=== PATIENT | female | born 1960 | race Caucasian/White ===

== ENCOUNTER 2021-02-19 12:40 | Emergency (ER) | payer OTHER ==
[~2021-02-19] VITALS: Ht 160 cm; Wt 113.4 kg
[2021-02-19] MEDS ORDERED: DEXAMETHASONE SOD PHOS 10 MG/1 ML VIAL IV ONE (13:00)
[2021-02-19] MEDS ORDERED: IPRATROPIUM BROMIDE 0.02% 2.5 ML NEB NEB STA (13:00)
[2021-02-19] MEDS ORDERED: ALBUTEROL SULF 0.083% NEB SOLN 3 ML NEB NEB STA (13:00)
[2021-02-19] MEDS ORDERED: DEXAMETHASONE SOD PHOS INJ 4 MG/ML SDV ONE (13:38)
[2021-02-19] MEDS ORDERED: IPRATROPIUM BROMIDE 0.02% 2.5 ML NEB ONE (13:38)
[2021-02-19] MEDS ORDERED: ALBUTEROL SULF 0.083% NEB SOLN 3 ML NEB ONE (13:39)
[2021-02-19] MEDS ORDERED: PREDNISONE20 MG PO (14:04)
[2021-02-19] MEDS ORDERED: AZITHROMYCIN250 MG PO (14:04)
[2021-02-19] MEDS ORDERED: Paxlovid PO (19:29)
== END 2021-02-19 14:11 | disposition home or self-care (01) ==
LOC: FSED 12:50
DX: U07.1 COVID-19 (principal); R06.02 Shortness of breath; J44.9 Chronic obstructive pulmonary disease, unspecified; R07.89 Other chest pain
CPT/HCPCS: 71046; 80053; 82553; 83880; 84484; 85025; 93005; 99283; J1100; U0002

== ENCOUNTER 2022-06-04 07:43 | Inpatient (IN) | payer BC, OTHER ==
[~2022-06-04] VITALS: Ht 160 cm; Wt 113.2 kg
[~2022-06-04 07:43] MED LIST: AZITHROMYCIN250 MG PO; PREDNISONE20 MG PO; Paxlovid PO
[2022-06-04] MEDS ORDERED: METHYLPREDNISOLONE SOD SUCC 125 MG/2ML VIAL ONE (08:22)
[2022-06-04] MEDS ORDERED: SODIUM CHLORIDE 0.9% 1000ML 1,000 ML IV STA (08:23)
[2022-06-04] MEDS ORDERED: ALBUTEROL/IPRATROPIUM 3 ML NEB ONE (08:23)
[2022-06-04] MEDS ORDERED: CEFTRIAXONE 1 GM VIAL ONE (08:23)
[2022-06-04] MEDS ORDERED: METHYLPREDNISOLONE SOD SUCC 125 MG/2ML VIAL IV ONE (08:30)
[2022-06-04] MEDS ORDERED: ALBUTEROL/IPRATROPIUM 3 ML NEB NEB ONE (08:30)
[2022-06-04] MEDS ORDERED: SODIUM CHLORIDE 0.9% 1000ML 1,000 ML IV SCH ×2 (09:15→12:00)
[2022-06-04 11:30] VITALS: BP 154/81
[2022-06-04 11:56] VITALS: BP 154/81
[2022-06-04] MEDS ORDERED: LISINOPRIL10 MG PO (12:07)
[2022-06-04] MEDS ORDERED: FAMOTIDINE20 MG PO (13:17)
[2022-06-04] MEDS ORDERED: ASPIRIN81 MG PO (13:17)
[2022-06-04] MEDS ORDERED: DYMISTA NASAL S23 GM INH (13:17)
[2022-06-04] MEDS ORDERED: PROVENTIL HFA6.7 GM INH (13:17)
[2022-06-04] MEDS ORDERED: BREO ELLIPTA 11 EACH INH (13:17)
[2022-06-04] MEDS ORDERED: AMLODIPINE BESYL5 MG PO (13:17)
[2022-06-04] MEDS ORDERED: MOVE FREE ULTR1 EAC1 (13:17)
[2022-06-04] MEDS ORDERED: CARBINOXAMINE MA4 MG PO (13:17)
[2022-06-04] MEDS ORDERED: TRICOR145 MG PO (13:17)
[2022-06-04] MEDS ORDERED: FUROSEMIDE10 MG/1 M1 IV (13:17)
[2022-06-04] MEDS ORDERED: ATORVASTATIN CA20 MG PO (13:17)
[2022-06-04 13:52] VITALS: BP 154/81
[2022-06-04] MEDS ORDERED: ALBUTEROL SULFATE HFA 8GM INHALATION AEROSOL INH PRN (16:32)
[2022-06-04 16:38] VITALS: BP 165/80
[2022-06-04] MEDS ORDERED: ACETAMINOPHEN 325 MG TAB PO PRN (16:45)
[2022-06-04 20:00] VITALS: BP 142/80
[2022-06-04] MEDS: FUROSEMIDE INJ 10 MG/ML 2 ML VIAL IV SCH (20:38)
[2022-06-04] MEDS: ATORVASTATIN 20 MG TAB PO SCH (20:38)
[2022-06-04] MEDS: FAMOTIDINE 20 MG TAB PO SCH (20:38)
[2022-06-05] VITALS (9 sets, daily range): BP systolic 100–153; BP diastolic 62–102
[2022-06-05] MEDS: ASPIRIN 81 MG CHEW TAB PO SCH (09:36)
[2022-06-05] MEDS: AMLODIPINE BESYLATE 5 MG TAB PO SCH (09:36)
[2022-06-05] MEDS: LISINOPRIL 20 MG TAB PO SCH (09:37)
[2022-06-05] MEDS: FENOFIBRATE 145 MG TAB PO SCH (11:04)
[2022-06-05 11:18] LABS: ABG HCO3 33 mmol/L (22-26); ABG PCO2 57 mmHg (35-45); ABG PH 7.37 (7.35-7.45); ABG PO2 83 mmHg (80-105); ABG TCO2 35
[2022-06-05] MEDS: DYMISTA NS SCH (11:19)
[2022-06-05 13:30] LABS: BASOPHILS # (AUTO) 0.1 (0.0-0.1); BASOPHILS % 0.3 % (0.0-1.0); EOSINOPHILS % 0.2 % (0.0-6.0); HEMATOCRIT 45.9 % (34.2-44.1); HEMOGLOBIN 14.4 g/dL (12.0-16.0); LYMPHOCYTES # (AUTO) 3.2 (1.0-3.2); LYMPHOCYTES % 21.1 % (18.0-39.1); MEAN CORPUSCULAR HEMOGLOBIN 28.6 pg (28-32); MEAN CORPUSCULAR HGB CONC 31.4 g/dL (31-35); MEAN CORPUSCULAR VOLUME 91.1 fL (81-99); MONOCYTES # (AUTO) 1.2 (0.2-0.8); MONOCYTES % 8.1 % (4.4-11.3); NEUTROPHILS # (AUTO) 10.5 (2.1-6.9); NEUTROPHILS % 69.4 % (38.7-80.0); PLATELET COUNT 239 x10e3/uL (140-360); RED BLOOD COUNT 5.04 x10e6/uL (3.6-5.1); RED CELL DISTRIBUTION WIDTH 14.5 % (11.7-14.4)
[2022-06-05] MEDS: ALBUTEROL/IPRATROPIUM 3 ML NEB NEB SCH ×2 (13:30→19:10)
[2022-06-05 13:47] LABS: ANION GAP 14.5 mmol/L (8-16); CALCIUM 9.1 mg/dL (8.4-10.2); CREATININE, SERUM 0.86 mg/dL (0.57-1.11); POTASSIUM 4.5 mmol/L (3.5-5.1)
[2022-06-05] MEDS: ENOXAPARIN SOD INJ 40 MG/0.4 ML SYR SC SCH (16:39)
[2022-06-05] MEDS: FUROSEMIDE INJ 10 MG/ML 2 ML VIAL IV SCH (16:39)
[2022-06-05] MEDS: BUDESONIDE/FORMOTEROL FUMARATE 80/4.5MCG 6.9 GM INH AEROSOL IH SCH (19:30)
[2022-06-05] MEDS: ATORVASTATIN 20 MG TAB PO SCH (21:20)
[2022-06-05] MEDS: FAMOTIDINE 20 MG TAB PO SCH (21:20)
[2022-06-06] VITALS (7 sets, daily range): BP systolic 121–149; BP diastolic 69–82
[2022-06-06] MEDS: ALBUTEROL/IPRATROPIUM 3 ML NEB NEB SCH ×4 (00:20→19:20)
[2022-06-06] MEDS: BREO ELLIPTA INH SCH (06:00)
[2022-06-06] MEDS: BUDESONIDE/FORMOTEROL FUMARATE 80/4.5MCG 6.9 GM INH AEROSOL IH SCH ×2 (06:54→19:20)
[2022-06-06 07:32] LABS: BASOPHILS # (AUTO) 0.1 (0.0-0.1); BASOPHILS % 0.4 % (0.0-1.0); EOSINOPHILS # (AUTO) 0.2 (0.0-0.4); EOSINOPHILS % 1.4 % (0.0-6.0); HEMATOCRIT 44.6 % (34.2-44.1); HEMOGLOBIN 13.9 g/dL (12.0-16.0); LYMPHOCYTES % 24.2 % (18.0-39.1); MEAN CORPUSCULAR HEMOGLOBIN 28.4 pg (28-32); MEAN CORPUSCULAR HGB CONC 31.2 g/dL (31-35); MEAN CORPUSCULAR VOLUME 91.2 fL (81-99); MONOCYTES # (AUTO) 1.1 (0.2-0.8); MONOCYTES % 8.4 % (4.4-11.3); NEUTROPHILS # (AUTO) 8.1 (2.1-6.9); NEUTROPHILS % 64.6 % (38.7-80.0); PLATELET COUNT 234 x10e3/uL (140-360); RED BLOOD COUNT 4.89 x10e6/uL (3.6-5.1); RED CELL DISTRIBUTION WIDTH 14.2 % (11.7-14.4)
[2022-06-06 08:03] LABS: ALBUMIN 3.4 g/dL (3.5-5.0); ANION GAP 12.4 mmol/L (8-16); CALCIUM 9.1 mg/dL (8.4-10.2); CREATININE, SERUM 0.74 mg/dL (0.57-1.11); MAGNESIUM 1.7 MG/DL (1.3-2.1); POTASSIUM 4.4 mmol/L (3.5-5.1)
[2022-06-06] MEDS: DYMISTA NS SCH (09:00)
[2022-06-06] MEDS: ASPIRIN 81 MG CHEW TAB PO SCH (09:26)
[2022-06-06] MEDS: FUROSEMIDE INJ 10 MG/ML 2 ML VIAL IV SCH ×2 (09:26→17:54)
[2022-06-06] MEDS: FENOFIBRATE 145 MG TAB PO SCH (09:27)
[2022-06-06] MEDS: AMLODIPINE BESYLATE 5 MG TAB PO SCH (09:27)
[2022-06-06] MEDS: LISINOPRIL 20 MG TAB PO SCH (09:27)
[2022-06-06] MEDS: ENOXAPARIN SOD INJ 40 MG/0.4 ML SYR SC SCH (17:54)
[2022-06-06] MEDS: CARBINOXAMINE MALEATE 4 MG PO SCH (21:00)
[2022-06-06] MEDS: ATORVASTATIN 20 MG TAB PO SCH (21:24)
[2022-06-06] MEDS: FAMOTIDINE 20 MG TAB PO SCH (21:24)
[2022-06-06] MEDS: LOPERAMIDE HCL 2 MG CAP PO PRN (22:41)
[2022-06-07] VITALS (8 sets, daily range): BP systolic 97–138; BP diastolic 61–73
[2022-06-07] MEDS: ALBUTEROL/IPRATROPIUM 3 ML NEB NEB SCH ×4 (00:40→20:00)
[2022-06-07 05:58] LABS: BASOPHILS # (AUTO) 0.1 (0.0-0.1); BASOPHILS % 0.4 % (0.0-1.0); EOSINOPHILS # (AUTO) 0.2 (0.0-0.4); EOSINOPHILS % 1.4 % (0.0-6.0); HEMATOCRIT 45.5 % (34.2-44.1); LYMPHOCYTES # (AUTO) 2.7 (1.0-3.2); LYMPHOCYTES % 20.2 % (18.0-39.1); MEAN CORPUSCULAR HEMOGLOBIN 28.5 pg (28-32); MEAN CORPUSCULAR HGB CONC 30.8 g/dL (31-35); MEAN CORPUSCULAR VOLUME 92.7 fL (81-99); MONOCYTES # (AUTO) 1.1 (0.2-0.8); MONOCYTES % 8.2 % (4.4-11.3); NEUTROPHILS # (AUTO) 9.2 (2.1-6.9); PLATELET COUNT 249 x10e3/uL (140-360); RED BLOOD COUNT 4.91 x10e6/uL (3.6-5.1); RED CELL DISTRIBUTION WIDTH 14.1 % (11.7-14.4)
[2022-06-07 06:33] LABS: ALBUMIN 3.5 g/dL (3.5-5.0); ANION GAP 14.7 mmol/L (8-16); CREATININE, SERUM 0.71 mg/dL (0.57-1.11); MAGNESIUM 1.6 MG/DL (1.3-2.1); POTASSIUM 3.7 mmol/L (3.5-5.1)
[2022-06-07] MEDS: BUDESONIDE/FORMOTEROL FUMARATE 80/4.5MCG 6.9 GM INH AEROSOL IH SCH ×2 (06:45→19:00)
[2022-06-07] MEDS: BREO ELLIPTA INH SCH (07:57)
[2022-06-07] MEDS: ASPIRIN 81 MG CHEW TAB PO SCH (08:35)
[2022-06-07] MEDS: FENOFIBRATE 145 MG TAB PO SCH (08:36)
[2022-06-07] MEDS: LISINOPRIL 20 MG TAB PO SCH (08:36)
[2022-06-07] MEDS: FUROSEMIDE INJ 10 MG/ML 2 ML VIAL IV SCH (08:36)
[2022-06-07] MEDS: AMLODIPINE BESYLATE 5 MG TAB PO SCH (08:45)
[2022-06-07] MEDS: LOPERAMIDE HCL 2 MG CAP PO PRN (08:51)
[2022-06-07] MEDS: CARBINOXAMINE MALEATE 4 MG PO SCH ×3 (09:00→21:00)
[2022-06-07] MEDS: DYMISTA NS SCH (09:00)
[2022-06-07] MEDS: ENOXAPARIN SOD INJ 40 MG/0.4 ML SYR SC SCH (17:17)
[2022-06-07] MEDS: FUROSEMIDE 20 MG TAB PO SCH (17:17)
[2022-06-07] MEDS: FAMOTIDINE 20 MG TAB PO SCH (21:21)
[2022-06-07] MEDS: ATORVASTATIN 20 MG TAB PO SCH (21:21)
[2022-06-08] MEDS: ALBUTEROL/IPRATROPIUM 3 ML NEB NEB SCH ×2 (01:20→07:05)
[2022-06-08 04:00] VITALS: BP 122/53
[2022-06-08] MEDS: BREO ELLIPTA INH SCH (06:00)
[2022-06-08] MEDS: FUROSEMIDE 20 MG TAB PO SCH (06:21)
[2022-06-08] MEDS: BUDESONIDE/FORMOTEROL FUMARATE 80/4.5MCG 6.9 GM INH AEROSOL IH SCH (07:24)
[2022-06-08 07:25] VITALS: BP 139/67
[2022-06-08 09:10] VITALS: BP 139/67
[2022-06-08] MEDS: ASPIRIN 81 MG CHEW TAB PO SCH (10:55)
[2022-06-08] MEDS: AMLODIPINE BESYLATE 5 MG TAB PO SCH (10:56)
[2022-06-08] MEDS: LISINOPRIL 20 MG TAB PO SCH (10:56)
[2022-06-08] MEDS: FENOFIBRATE 145 MG TAB PO SCH (10:56)
== END 2022-06-08 13:15 | disposition home or self-care (01) | DRG 189 ==
LOC: FSED 08:00 → ERHOLD 09:37 → MED/SURG2 10:52
PROVIDERS: ADMIT Family Medicine; ATTEND Internal Medicine
DX: J96.01 Acute respiratory failure with hypoxia (principal); J44.1 Chronic obstructive pulmonary disease with (acute) exacerbation; Z68.41 Body mass index [BMI] 40.0-44.9, adult; N39.0 Urinary tract infection, site not specified; G47.33 Obstructive sleep apnea (adult) (pediatric); I27.20 Pulmonary hypertension, unspecified; I10 Essential (primary) hypertension; K21.9 Gastro-esophageal reflux disease without esophagitis; E66.01 Morbid (severe) obesity due to excess calories; E78.5 Hyperlipidemia, unspecified; Z20.822 Contact with and (suspected) exposure to COVID-19; Z87.891 Personal history of nicotine dependence; Z86.16 Personal history of COVID-19; Z90.49 Acquired absence of other specified parts of digestive tract
CPT/HCPCS: 0223U; 36415; 36600; 71045; 71250; 80048; 80053; 81003; 82805; 83735; 83880; 84484; 85025; 93005; 93306; 94060; 94640; 94660; 94664; 94760; 94799; 99284; J0696; J1650; J1940; J2930

== ENCOUNTER 2024-02-05 10:44 | Emergency (ER) | payer OTHER ==
[~2024-02-05] VITALS: Ht 161.3 cm; Wt 129.3 kg
[~2024-02-05 10:44] MED LIST changes: +AMLODIPINE BESYL5 MG PO; +ASPIRIN81 MG PO; +ATORVASTATIN CA20 MG PO; +BREO ELLIPTA 11 EACH INH; +BREZTRI AEROS10.7 GM; +CARBINOXAMINE MA4 MG PO; +DYMISTA NASAL S23 GM INH; +FAMOTIDINE20 MG PO; +FUROSEMIDE10 MG/1 M1 IV; +LISINOPRIL10 MG PO; +METFORMIN HCL500 MG PO; +MONTELUKAST SOD10 MG PO; +MOVE FREE ULTR1 EAC1; +PROVENTIL HFA6.7 GM INH; +TRICOR145 MG PO; +XOFLUZA80 MG PO
[2024-02-05 10:47] VITALS: PULSE 92; RESP 20; TEMP 96.4
[2024-02-05] MEDS ORDERED: CEPHALEXIN500 MG PO (12:28)
[2024-02-05 12:38] VITALS: BP 131/64; PULSE 88; RESP 20; TEMP 97.8; O2SAT 95
== END 2024-02-05 12:30 | disposition home or self-care (01) ==
LOC: FSED 10:47
DX: S66.812A Strain of other specified muscles, fascia and tendons at wrist and hand level, left hand, initial encounter (principal); L98.498 Non-pressure chronic ulcer of skin of other sites with other specified severity; X50.9XXA Other and unspecified overexertion or strenuous movements or postures, initial encounter; Y92.89 Other specified places as the place of occurrence of the external cause; E66.01 Morbid (severe) obesity due to excess calories; I10 Essential (primary) hypertension; E11.9 Type 2 diabetes mellitus without complications; J44.9 Chronic obstructive pulmonary disease, unspecified; E78.5 Hyperlipidemia, unspecified; J45.909 Unspecified asthma, uncomplicated; Z99.81 Dependence on supplemental oxygen
CPT/HCPCS: 99284